=== PATIENT | male | born 1960 | race African-American/Black ===

== ENCOUNTER 2024-10-24 08:24 | Inpatient (IN) | payer OTHER ==
[2024-10-24 08:52] VITALS: BMI 28.1
[2024-10-24] MEDS ORDERED: DICYCLOMINE HCL 10 MG CAPSULE PO PRN (09:27)
[2024-10-24] MEDS ORDERED: METHOCARBAMOL 500 MG TABLET PO PRN (09:27)
[2024-10-24] MEDS ORDERED: ACETAMINOPHEN 325 MG TABLET (FP) PO PRN (09:27)
[2024-10-24] MEDS ORDERED: POLYETHYLENE GLYCOL (HEALTHYLAX) 3350 17 GM PACKET PO PRN (09:27)
[2024-10-24] MEDS ORDERED: guaiFENesin 600 MG TABLET.ER (FP) PO PRN (09:27)
[2024-10-24] MEDS ORDERED: MAG HYDROX/AL HYDROX/SIMETH 30 ML UNIT-DOSE CUP PO PRN (09:27)
[2024-10-24] MEDS ORDERED: IBUPROFEN 600 MG TABLET (FP) PO PRN (09:27)
[2024-10-24] MEDS ORDERED: IBUPROFEN 400 MG TABLET (FP) PO PRN (09:27)
[2024-10-24] MEDS ORDERED: BENZOCAINE/MENTHOL (CHLORASEPTIC ) LOZENGE MM PRN (09:27)
[2024-10-24] MEDS ORDERED: BENZONATATE 200 MG CAPSULE PO PRN (09:27)
[2024-10-24] MEDS ORDERED: hydrOXYzine PAMOATE 25 MG CAPSULE (FP) PO PRN (09:27)
[2024-10-24] MEDS ORDERED: ONDANSETRON *ODT* 4 MG TABLET SL PRN (09:27)
[2024-10-24] MEDS ORDERED: NALOXONE (NARCAN) HCL 4 MG/0.1 ML SPRAY NS PRN (09:27)
[2024-10-24] MEDS ORDERED: LOPERAMIDE HCL 2 MG CAPSULE PO PRN (09:27)
[2024-10-24] MEDS ORDERED: BISMUTH SUBSALICYLATE 524 MG/30 ML PO PRN (09:27)
[2024-10-24] MEDS ORDERED: MAGNESIUM HYDROX 2400MG/30ML ORAL SUSPENSION 30 ML CUP PO PRN (09:27)
[2024-10-24] MEDS ORDERED: PRENATAL VITAMINS W/ FOLIC ACID TABLET (FP) PO ONE (10:57)
[2024-10-24] MEDS ORDERED: amLODIPine BESYLATE 5 MG TABLET (FP) ONE (10:57)
[2024-10-24] MEDS: PRENATAL VITAMINS W/ FOLIC ACID TABLET (FP) PO SCH (10:58)
[2024-10-24] MEDS: amLODIPine BESYLATE 10 MG TABLET (FP) PO SCH (10:59)
[2024-10-24] MEDS: NALTREXONE HCL 50 MG TABLET PO ONE (13:45)
[2024-10-24] MEDS: MELATONIN 5 MG TABLETS PO SCH (22:13)
[2024-10-24] MEDS: THIAMINE 100 MG TABLET PO SCH (22:13)
[2024-10-24] MEDS: SUVOREXANT 5 MG TABLET PO PRN (22:14)
[2024-10-25] MEDS: NALTREXONE HCL 50 MG TABLET PO SCH (10:12)
[2024-10-25 11:05] VITALS: BP 141/91; PULSE 75; RESP 18; TEMP 96.9
[2024-10-25 11:31] LABS: MCHC 32.6 g/dl (32.3-36.5); MEAN CELL VOLUME 96.5 fl (79.0-92.2); MEAN PLT VOLUME 10.4 fl (9.4-12.4); RDW 13.0 % (12.2-16.4)
[2024-10-25 11:44] LABS: GLUCOSE,RANDOM 114.0 mg/dL (74-106)
[2024-10-25 11:45] LABS: TOT PROT 9.2 g/dl (6.4-8.2)
[2024-10-25 11:46] LABS: CO2 21.0 mmol/L (21-32)
[2024-10-25 11:47] LABS: ALK PHOS 50.0 U/L (40-150)
[2024-10-25 11:50] LABS: CREATININE 1.23 mg/dL (0.55-1.3); LDL CHOLESTEROL (ONLY SJRH) 176.0 mg/dL (5-100); SGOT/AST 32.0 U/L (5-34); SGPT/ALT 27.0 U/L (0-55)
== END 2024-10-25 13:41 | disposition other institution (70) | DRG 897 ==
LOC: YASAS 08:24 → Y3N 10:48
PROVIDERS: ADMIT Family Medicine; ATTEND Allergy & Immunology
PROC: HZ2ZZZZ Detoxification Services for Substance Abuse Treatment (ICD-10-PCS; principal; 2024-10-24)
DX: F10.20 Alcohol dependence, uncomplicated (principal); G47.00 Insomnia, unspecified; I10 Essential (primary) hypertension; E78.5 Hyperlipidemia, unspecified; Z86.11 Personal history of tuberculosis; Z86.19 Personal history of other infectious and parasitic diseases
CPT/HCPCS: 36415; 71046-TC-FY; 80053; 80061; 80307; 83036; 85027; 86780; 93005; 93010

== ENCOUNTER 2024-10-25 13:56 | Inpatient (IN) | payer OTHER ==
[2024-10-25] MEDS ORDERED: IBUPROFEN 400 MG TABLET (FP) PO PRN (16:16)
[2024-10-25] MEDS ORDERED: BENZOCAINE/MENTHOL (CHLORASEPTIC ) LOZENGE MM PRN (16:16)
[2024-10-25] MEDS ORDERED: LOPERAMIDE HCL 2 MG CAPSULE PO PRN (16:16)
[2024-10-25] MEDS ORDERED: hydrOXYzine PAMOATE 25 MG CAPSULE (FP) PO PRN (16:16)
[2024-10-25] MEDS ORDERED: IBUPROFEN 600 MG TABLET (FP) PO PRN (16:16)
[2024-10-25] MEDS ORDERED: NALOXONE (NARCAN) HCL 4 MG/0.1 ML SPRAY NS PRN (16:16)
[2024-10-25] MEDS ORDERED: ACETAMINOPHEN 325 MG TABLET (FP) PO PRN (16:16)
[2024-10-25] MEDS ORDERED: MAG HYDROX/AL HYDROX/SIMETH 30 ML UNIT-DOSE CUP PO PRN (16:16)
[2024-10-25] MEDS ORDERED: BENZONATATE 200 MG CAPSULE PO PRN (16:16)
[2024-10-25] MEDS ORDERED: MAGNESIUM HYDROX 2400MG/30ML ORAL SUSPENSION 30 ML CUP PO PRN (16:16)
[2024-10-25] MEDS ORDERED: METHOCARBAMOL 500 MG TABLET PO PRN (16:16)
[2024-10-25] MEDS ORDERED: guaiFENesin 600 MG TABLET.ER (FP) PO PRN (16:16)
[2024-10-25] MEDS ORDERED: POLYETHYLENE GLYCOL (HEALTHYLAX) 3350 17 GM PACKET PO PRN (16:16)
[2024-10-25] MEDS ORDERED: NALOXONE HCL 0.4 MG/ML VIAL IVPUSH PRN (16:16)
[2024-10-25] MEDS: THIAMINE 100 MG TABLET PO SCH (21:32)
[2024-10-25] MEDS: MELATONIN 5 MG TABLETS PO SCH (21:32)
[2024-10-26] MEDS: amLODIPine BESYLATE 10 MG TABLET (FP) PO SCH (10:15)
[2024-10-26] MEDS: PRENATAL VITAMINS W/ FOLIC ACID TABLET (FP) PO SCH (10:15)
[2024-10-26] MEDS: NALTREXONE HCL 50 MG TABLET PO SCH (10:15)
[2024-10-26 10:43] LABS: HIV INTERPRETATION NEGATIVE (NEGATIVE)
[2024-10-26] MEDS: PNEUMOC 20-VAL CONJ-DIP CRM/PF 0.5 ML SYRINGE IM ONE (12:52)
[2024-10-29] MEDS: ATORVASTATIN CA 10 MG TABLET (FP) PO SCH (21:24)
[2024-11-07 06:43] VITALS: RESP 20
[2024-11-08 06:40] VITALS: TEMP 97.9
[2024-11-08 08:49] VITALS: BP 134/97; PULSE 79
== END 2024-11-08 09:06 | disposition home or self-care (01) | DRG 895 ==
LOC: YASAS 13:56 → Y3E 13:57
PROVIDERS: ADMIT Psychiatry & Neurology Pain Medicine; ATTEND Psychiatry & Neurology Pain Medicine
PROC: HZ42ZZZ Group Counseling for Substance Abuse Treatment, Cognitive-Behavioral (ICD-10-PCS; principal; 2024-10-25)
DX: F10.20 Alcohol dependence, uncomplicated (principal); F41.9 Anxiety disorder, unspecified; G47.00 Insomnia, unspecified; E78.5 Hyperlipidemia, unspecified; I10 Essential (primary) hypertension; Z86.11 Personal history of tuberculosis; Z87.891 Personal history of nicotine dependence
CPT/HCPCS: 36415; 87389; 90677